=== PATIENT | female | born 1960 | race Caucasian/White ===

== ENCOUNTER 2021-12-17 11:05 | Emergency (ER) | payer OTHER, SELFPAY ==
--- NOTE | 2021-12-17 11:19 | ED.URI ---
HPI - URI/Sore Throat General Chief Complaint: Upper Respiratory Infection Stated Complaint: sinus infection/ear pain Time Seen by Provider: 12/17/21 11:19 Source: patient, RN notes reviewed and old records reviewed Mode of arrival: ambulatory Limitations: no limitations History of Present Illness HPI Narrative: 61-year-old female presents to the [facility] with complaints of generalized fatigue, sinus pain pressure and right ear pain and pressure. History of ear infections. States she is to have a tube in the ear. Patient denies having fevers at home, febrile here. No chest pain or shortness of breath. Reports symptoms since yesterday MD elicited complaint: fever, rhinorrhea and nasal congestion Pertinent past history: tympanostony tubes Severity: moderate Description of mucous: green Exacerbating factors: nothing Relieving factors: nothing Related Data Home Medications Medication Instructions Recorded Confirmed empagliflozin [Jardiance] 25 mg PO DAILY 12/17/21 12/17/21 metformin 1,000 mg PO BID 12/17/21 12/17/21 omeprazole 10 mg PO DAILY 12/17/21 12/17/21 Allergies Allergy/AdvReac Type Severity Reaction Status Date / Time No Known Allergies Allergy Mild Verified 12/17/21 11:11 Review of Systems Review of Systems: All systems reviewed & are unremarkable except as noted in HPI and below Constitutional: Constitutional: Reports as per HPI, Reports chills, Reports fatigue, Denies fever(s) and Denies headache(s) Eyes: Eyes: Reports no additional eye complaints ENT: Reports as per HPI, Denies vertigo, Denies dizziness, Denies headache(s), Reports nasal congestion and Denies sore throat Comments: Right ear pain Cardiovascular: Cardiovascular: Reports no additional cardiovascular complaints, Denies chest pain, Denies syncope, Denies rapid heart rate and Denies dyspnea Respiratory: Respiratory: Reports no additional respiratory complaints, Denies cough, Denies dyspnea and Denies wheezing Gastrointestinal: Gastrointestinal: Reports no additional gastrointestinal complaints, Denies abdominal pain, Denies diarrhea, Denies nausea and Denies vomiting Musculoskeletal: Musculoskeletal: Reports no additional musculoskeletal complaints and Denies numbness Integumentary/Breasts: Skin/Breast: Reports system reviewed and no additional complaints, except as docu Neurologic: Reports system reviewed and no additional complaints, except as documented, Denies vertigo, Denies dizziness, Denies syncope, Denies headache(s), Denies focal weakness and Denies numbness Psychiatric: Psychiatric: Reports no additional psychiatric complaints Allergic/Immunologic: Allergic/Immunologic: Reports no additional allergic/immunologic complaints and Denies wheezing PMFSH Past Medical History Medical History (Updated 12/17/21 @ 18:00 by Dory Hernandez) Diabetes H/O gastroesophageal reflux (GERD) Surgical History Surgical History (Updated 12/17/21 @ 18:00 by Dory Hernandez) History of placement of ear tubes Social History Social History (Updated 12/17/21 @ 18:00 by Dory Hernandez) Gender identity (if verbalized by the patient): Female Comments At the time of my signature, I reviewed and agree with the nursing past medical, surgical, social, and family history. There is no relevant family history pertinent to the patient complaint. Exam Const: General: cooperative, no acute distress, well developed, alert and ill appearing acutely Nutritional Appearance: well nourished Orientation/consciousness: patient oriented x3 Limitations: no limitations HENMT: Head: normal to inspection Ears: external ears normal, Abnormal EAC present excessive cerumen; no erythema and TM abnormal bulging bilateral; not erythematous General nose exam: Abnormal mucous membranes and turbinates present boggy bilateral and erythematous bilateral and Nasal discharge present purulent Face and sinus: sinus tenderness frontal and maxillary Mouth: Yes lip normal and Yes
[2021-12-17 11:21] VITALS: BP 139/59; PULSE 125; RESP 16; TEMP 38.8; O2SAT 98
[2021-12-17] MEDS: ACETAMINOPHEN 500 MG TABLET 1000 MG PO (11:31)
[2021-12-19 09:46] LABS: SARS-CoV-2 RNA PCR Negative
== END 2021-12-17 11:56 | disposition home or self-care (01) ==
PROVIDERS: Emergency Provider Nurse Practitioner; PCP Family Medicine
DX: J01.40 Acute pansinusitis, unspecified (principal); E11.9 Type 2 diabetes mellitus without complications; K21.9 Gastro-esophageal reflux disease without esophagitis
CPT/HCPCS: 87426; 87804; 99213; A9270; C9803; G0463; U0003; U0005